=== PATIENT | male | born 1955 | race Caucasian/White ===

== ENCOUNTER 2018-11-07 06:45 | Day surgery (SDC) | payer OTHER ==
[2018-11-07] MEDS ORDERED: Propofol 200 MG/20 ML SDV ONE (06:50)
[2018-11-07] MEDS ORDERED: fentaNYL 100 MCG/2 ML SDV ONE (06:50)
[2018-11-07] MEDS ORDERED: Midazolam 1 MG/ML 2 ML SDV ONE (06:50)
[2018-11-07] MEDS ORDERED: Dextrose 5%-Lactated Ringers 1,000 ML IV SCH (07:00)
--- NOTE | 2018-11-11 11:21 | OR ---
DATE OF PROCEDURE: 11/07/2018 SURGEON: Gil Pearl MD PREOPERATIVE DIAGNOSIS: Indications for screening colonoscopy. POSTOPERATIVE DIAGNOSIS: Indications for screening colonoscopy. OPERATIVE PROCEDURE: Flexible colonoscopy (15826). ANESTHESIA: IV sedation. INDICATION FOR PROCEDURE: This is a 63-year-old presenting for a screening colonoscopy. Plan is to proceed with a colonoscopy with biopsies and/or polypectomy as indicated. Potential risks including bleeding and perforation were discussed, and the patient wishes to proceed. DETAILS OF PROCEDURE: The patient was taken to the operating room and placed in the left lateral decubitus position. IV sedation was administered, after which the initial digital rectal exam was performed and was unremarkable. Colonoscope was then passed to the level of the cecum. Retroflexion within the rectum revealed uncomplicated hemorrhoidal columns, and the prep was generally quite good with only a small amount of stool present. To the level of the cecum and distally, no abnormalities were noted, no areas of diverticulosis, no areas of colitis, and no polyps or other signs of neoplasia. The procedure was then concluded. The patient was taken to the recovery room in satisfactory condition. The patient has no family or personal history of colonic neoplasia, so the next colonoscopy should be scheduled in roughly 10 years. Gil Pearl MD /[id number]
== END 2018-11-07 09:05 | disposition home or self-care (01) ==
LOC: JP.SDS 06:45
PROVIDERS: ATTEND Surgery
DX: Z12.11 Encounter for screening for malignant neoplasm of colon (principal); I12.9 Hypertensive chronic kidney disease with stage 1 through stage 4 chronic kidney disease, or unspecified chronic kidney disease; N18.1 Chronic kidney disease, stage 1; G47.33 Obstructive sleep apnea (adult) (pediatric); M19.90 Unspecified osteoarthritis, unspecified site; E66.9 Obesity, unspecified; Z68.42 Body mass index [BMI] 45.0-49.9, adult; Z99.89 Dependence on other enabling machines and devices; Z87.891 Personal history of nicotine dependence; Z86.010 Personal history of colon polyps
CPT/HCPCS: J2250; J2704; J3010; J7042

== ENCOUNTER 2024-12-04 06:41 | Day surgery (SDC) | payer MEDICARE, BC ==
[2024-12-04] MEDS ORDERED: Propofol 200 MG/20 ML SDV ONE ×3 (06:53→08:58)
[2024-12-04] MEDS ORDERED: fentaNYL 100 MCG/2 ML SDV ONE (06:54)
[2024-12-04] MEDS ORDERED: Midazolam 1 MG/ML 2 ML SDV ONE (06:54)
[2024-12-04] MEDS: Lactated Ringers 1,000 ML IV SCH (07:52)
== END 2024-12-04 10:08 | disposition home or self-care (01) ==
LOC: JP.SDS 06:41
PROVIDERS: ATTEND Family Medicine
DX: D12.3 Benign neoplasm of transverse colon (principal); D12.4 Benign neoplasm of descending colon; D12.5 Benign neoplasm of sigmoid colon; E61.1 Iron deficiency; I10 Essential (primary) hypertension; E11.9 Type 2 diabetes mellitus without complications; Z86.0100 Personal history of colon polyps, unspecified
CPT/HCPCS: 00811; 45380; 45381; 45385; 88305; J2250; J2704; J3010; J7120